=== PATIENT | female | born 1965 | race Two or more races ===

== ENCOUNTER 2016-07-12 08:41 | Emergency (ER) | payer OTHER ==
[~2016-07-12] VITALS: Ht 154.9 cm; Wt 83.5 kg
[~2016-07-12 08:41] MED LIST: SEROQUEL300 MG PO
[2016-07-12 08:57] VITALS: BP 121/75
--- NOTE | 2016-07-12 09:08 | NUR ---
Patient ambulated to bed 5.
--- NOTE | 2016-07-12 09:10 | NUR ---
51F BIB SELF C/O REQUEST FOR MELATONIN; PT STATES HAS BEEN HAVING INSOMNIA FOR 4-6 DAYS, AND WANTS PRESCRIPTION FOR MELATONIN; PT STATES TAKING SEROQUEL; A&OX4, PERRL; PT STATES HEARS "COMPUTER NOISES", BUT DENIES VOICES TELLING PT TO HURT SELF OR OTHERS AT THIS TIME TIME; DENIES ANY IDEAS OF SUICIDAL IDEATION AT THIS TIME; BL LUNG SOUNDS CLEAR, RR EVEN/UNLABORED, SKIN IS WARM/DRY/INTACT, DENIES N/V/D AT THIS TIME; STEADY GAIT; PT RESTING IN BED W/ HOB ELEVATED AND IN LOWEST POSITION; POSITIONED FOR COMFORT; ER MD MADE AWARE OF STATUS. WILL CONTINUE TO MONITOR.
--- NOTE | 2016-07-12 09:13 | NUR ---
ER MD DR. CHAVEZ EVALUATING PT AT BEDSIDE.
[2016-07-12 09:28] VITALS: BP 125/72
--- NOTE | 2016-07-12 09:28 | NUR ---
Patient discharged with v/s stable. Written and verbal after care instructions given and explained. Patient alert, oriented and verbalized understanding of instructions. Ambulatory with steady gait. All questions addressed prior to discharge. ID band removed. Patient advised to follow up with PMD. Rx of MELATONIN 5MG TAB given. Patient educated on indication of medication including possible reaction and side effects. Opportunity to ask questions provided and answered.
== END 2016-07-12 09:28 | disposition home or self-care (01) ==
LOC: MED 08:41
DX: G47.00 Insomnia, unspecified (principal); F20.9 Schizophrenia, unspecified; E11.9 Type 2 diabetes mellitus without complications; Z85.850 Personal history of malignant neoplasm of thyroid

== ENCOUNTER 2018-07-12 14:03 | Emergency (ER) | payer OTHER ==
[~2018-07-12] VITALS: Ht 154.9 cm; Wt 100.4 kg
[~2018-07-12 14:03] MED LIST changes: +QUET300T1 PO; -SEROQUEL300 MG PO
[2018-07-12 14:11] VITALS: BP 135/73
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
--- NOTE | 2018-07-12 15:00 | NUR ---
ermd at bedside
[2018-07-12] MEDS ORDERED: BACITRACIN OINT 500 UNITS/GM PKT TP ONE (15:05)
[2018-07-12] MEDS ORDERED: LIDOCAINE 1% 500 MG/50 ML VIAL INJ SCH (15:05)
[2018-07-12] MEDS ORDERED: LIDOCAINE MPF 1% 5mL VIAL ONE (15:18)
--- NOTE | 2018-07-12 16:30 | NUR ---
WOUND CARE PERFORMED, GOOD PERFUSION TO L HAND MIDDLE FINGER, PT DENIES NUMBNESS/TINGLING.
[2018-07-12 16:40] VITALS: BP 132/75
--- NOTE | 2018-07-12 16:41 | NUR ---
Patient discharged with v/s stable. Written and verbal after care instructions given and explained. Patient alert, oriented and verbalized understanding of instructions. Ambulatory with steady gait. All questions addressed prior to discharge. ID band removed. Patient advised to follow up with PMD. Rx of BACITRACIN, KEFLEX, TYLENOL, AND BACTRIM given. Patient educated on indication of medication including possible reaction and side effects. Opportunity to ask questions provided and answered.
== END 2018-07-12 16:41 | disposition home or self-care (01) ==
LOC: MED 14:03
DX: T23.222A Burn of second degree of single left finger (nail) except thumb, initial encounter (principal); E11.9 Type 2 diabetes mellitus without complications; C73 Malignant neoplasm of thyroid gland; Z79.899 Other long term (current) drug therapy; W40.8XXA Explosion of other specified explosive materials, initial encounter; Y93.89 Activity, other specified; Y92.090 Kitchen in other non-institutional residence as the place of occurrence of the external cause; Y99.8 Other external cause status
CPT/HCPCS: 26010; 73140; 82948; 99283; J2001; Q0092

== ENCOUNTER 2019-12-31 12:08 | Emergency (ER) | payer OTHER ==
[~2019-12-31] VITALS: Ht 162.6 cm; Wt 93.0 kg
[2019-12-31 12:16] VITALS: BP 133/82
--- NOTE | 2019-12-31 12:29 | NUR ---
PT AMBULATED TO BED 4
--- NOTE | 2019-12-31 12:30 | NUR ---
BIB self from [facility] facility, referred for abcesses on abdomen and thighs, denies trauma. NKDA, PMH depression and anxiety, seen at [facility] A, A, Ox4, flat affect, cooperative Moving all exts w/o difficulty. Resp even ang unlabored In NAD, HOB elevated Awaiting evaluation by MD, will continue to monitor
--- NOTE | 2019-12-31 13:16 | NUR ---
Patient medically cleared for discharge by MD. Advised to follow up with PCP or return to ED if symptoms return or worsen. Given copy of discharge instructions and script. Patient verbalized understanding of instructions and prescription. Gait steady, ID band removed. All belongings taken with patient.
== END 2019-12-31 13:16 | disposition home or self-care (01) ==
LOC: MED 12:08
DX: L03.116 Cellulitis of left lower limb (principal); L03.115 Cellulitis of right lower limb; L03.314 Cellulitis of groin; E11.9 Type 2 diabetes mellitus without complications; Z85.850 Personal history of malignant neoplasm of thyroid
CPT/HCPCS: 99283

== ENCOUNTER 2023-10-06 10:48 | Inpatient (IN) | payer OTHER ==
[~2023-10-06] VITALS: Ht 160 cm; Wt 85.0 kg
[2023-10-06 10:55] VITALS: BP 137/75; PULSE 87; RESP 16; TEMP 98.7; O2SAT 96
[2023-10-06 11:02] VITALS: O2SAT 96
[2023-10-06 11:58] LABS: BASOPHILS # (AUTO) 0.1 K/uL (0.00-0.22); BASOPHILS % (AUTO) 1.1 % (0.0-2.0); EOSINOPHILS # (AUTO) 0.2 K/uL (0-0.4); EOSINOPHILS % (AUTO) 1.2 % (0.0-4.0); HEMATOCRIT 35.6 % (36-48); HEMOGLOBIN 12.1 g/dL (12.0-16.0); LYMPHOCYTES # (AUTO) 2.3 K/uL (2.5-16.5); LYMPHOCYTES % (AUTO) 15.9 % (20.5-51.1); MEAN CORPUSCULAR HEMOGLOBIN 31 pg (27-31); MEAN CORPUSCULAR HGB CONC 34 g/dL (33-37); MEAN CORPUSCULAR VOLUME 89.5 fL (80-94); MONOCYTES # (AUTO) 1.1 K/uL (0.8-1.0); MONOCYTES % (AUTO) 7.5 % (1.7-9.3); NEUTROPHILS # (AUTO) 10.5 K/uL (1.8-7.7); NEUTROPHILS % (AUTO) 74.3 % (42.2-75.2); PLATELET COUNT (AUTO) 316 K/uL (140-450); RED BLOOD CELL COUNT(AUTO) 3.97 MIL/uL (4.20-5.40); RED CELL DISTRIBUTION WIDTH 13.3 % (11.6-13.7); WHITE BLOOD COUNT (AUTO) 14.2 K/uL (4.8-10.8)
[2023-10-06 12:14] LABS: ANION GAP 16.1 (8-16); CALCIUM 9.3 mg/dL (8.5-10.1); CARBON DIOXIDE 27.1 mmol/L (21-32); CREATININE 1.1 mg/dL (0.6-1.3); POTASSIUM 4.2 mmol/L (3.5-5.1)
[2023-10-06] MEDS: NACL 0.9% 1,000 ML IV ONE (13:41)
[2023-10-06] MEDS: INSULIN REGULAR, HUMAN 100 UNIT/ML VIAL IV ONE (13:50)
[2023-10-06] MEDS: LIDOCAINE/EPI 1% 1:100000 20 ML VIAL INJ ONE (14:03)
[2023-10-06] MEDS ORDERED: VANCOMYCIN 1,000 MG VIAL ONE (14:43)
[2023-10-06] MEDS: VANCOMYCIN 1,000 MG in DEXTROSE 5% 250 ML IV ONE (14:53)
[2023-10-06] MEDS ORDERED: RISP3TAB76 PO (15:34)
[2023-10-06] MEDS ORDERED: QUET300T26 PO (15:34)
[2023-10-06] MEDS ORDERED: ESCI5TAB18 PO (15:34)
[2023-10-06] MEDS ORDERED: ONDANSETRON 4 MG/2 ML VIAL IVP PRN (16:45)
[2023-10-06] MEDS ORDERED: VANCOMYCIN PER PHARMACY MC PRN (16:45)
[2023-10-06] MEDS ORDERED: HYDROmorphone 1 MG/ML AMP IVP PRN (16:45)
[2023-10-06] MEDS ORDERED: ZOLPIDEM 5 MG TAB PO PRN (16:45)
[2023-10-06] MEDS ORDERED: LORazepam 1 MG TAB PO PRN (16:45)
[2023-10-06] MEDS ORDERED: HYDROcodone/APAP 5/325 MG 1 TAB TAB PO PRN (16:45)
[2023-10-06] MEDS ORDERED: DEXTROSE 50% 50 ML SYR IVP PRN (16:50)
[2023-10-06] MEDS ORDERED: hydrALAZINE 25 MG TAB PO PRN (16:50)
[2023-10-06] MEDS: INSULIN LANTUS 100 UNITS/ML 10 ML VIAL SUBQ SCH (17:36)
[2023-10-06 20:00] VITALS: BP 109/59; PULSE 113; PULSE 80; PULSE 81; RESP 18; TEMP 97.7; O2SAT 92; O2SAT 95
[2023-10-06] MEDS: BLOOD GLUCOSE MONITORING 1 DEV DEV FS SCH (21:00)
[2023-10-06] MEDS: QUEtiapine FUMARATE 100 MG TAB PO SCH (22:36)
[2023-10-06] MEDS: INSULIN LISPRO SLIDING SCALE 100 UNITS/ML VIAL SUBQ PRN (22:45)
[2023-10-07] VITALS: BP 105/59; PULSE 77; PULSE 79; RESP 18; TEMP 97; O2SAT 94
[2023-10-07] MEDS: INSULIN LISPRO 100 UNITS/ML VIAL SUBQ ONE (00:55)
[2023-10-07 04:00] VITALS: BP 98/58; PULSE 73; PULSE 80; RESP 18; TEMP 96.9; O2SAT 97
[2023-10-07 07:05] LABS: BASOPHILS # (AUTO) 0.1 K/uL (0.00-0.22); EOSINOPHILS # (AUTO) 0.3 K/uL (0-0.4); HEMOGLOBIN 11.7 g/dL (12.0-16.0); MEAN CORPUSCULAR HEMOGLOBIN 31 pg (27-31)
[2023-10-07 07:21] LABS: ALBUMIN 3.3 g/dL (3.4-5.0); ANION GAP 11.1 (8-16); CALCIUM 8.8 mg/dL (8.5-10.1); CARBON DIOXIDE 30.1 mmol/L (21-32); CREATININE 0.9 mg/dL (0.6-1.3); MAGNESIUM 2.1 mg/dL (1.8-2.4); POTASSIUM 3.2 mmol/L (3.5-5.1); TOTAL BILIRUBIN 0.8 mg/dL (0.0-1.0); TOTAL PROTEIN, SERUM 7.3 g/dL (6.4-8.2)
[2023-10-07 07:24] LABS: BASOPHILS % (AUTO) 1.1 % (0.0-2.0); EOSINOPHILS % (AUTO) 2.2 % (0.0-4.0); HEMATOCRIT 34.1 % (36-48); LYMPHOCYTES # (AUTO) 3.1 K/uL (2.5-16.5); LYMPHOCYTES % (AUTO) 24.5 % (20.5-51.1); MEAN CORPUSCULAR HGB CONC 34 g/dL (33-37); MEAN CORPUSCULAR VOLUME 88.9 fL (80-94); MONOCYTES % (AUTO) 8.1 % (1.7-9.3); NEUTROPHILS # (AUTO) 8.2 K/uL (1.8-7.7); NEUTROPHILS % (AUTO) 64.1 % (42.2-75.2); PLATELET COUNT (AUTO) 338 K/uL (140-450); RED BLOOD CELL COUNT(AUTO) 3.83 MIL/uL (4.20-5.40); RED CELL DISTRIBUTION WIDTH 13.5 % (11.6-13.7); WHITE BLOOD COUNT (AUTO) 12.7 K/uL (4.8-10.8)
[2023-10-07 08:00] VITALS: BP 117/78; PULSE 70; PULSE 71; RESP 18; TEMP 98.5; O2SAT 95
[2023-10-07] MEDS ORDERED: ESCITALOPRAM 20 MG TAB PO SCH (09:00)
[2023-10-07] MEDS: VANCOMYCIN HCL 750 MG in NACL 0.9% 250 ML IV SCH (09:21)
[2023-10-07] MEDS: DOCUSATE SODIUM 100 MG GELCAP PO SCH (09:22)
[2023-10-07] MEDS: risperiDONE 1 MG TAB PO SCH (09:23)
[2023-10-07] MEDS: ESCITALOPRAM 5MG TAB PO SCH (09:24)
[2023-10-07 12:00] VITALS: BP 112/74; PULSE 77; PULSE 78; RESP 18; TEMP 99.2; O2SAT 92
[2023-10-07] MEDS: POTASSIUM CHLORIDE 10 MEQ TABER PO SCH (14:35)
[2023-10-07 16:00] VITALS: BP 99/53; PULSE 78; RESP 18; TEMP 99; O2SAT 94
[2023-10-07 20:00] VITALS: BP 112/70; PULSE 83; RESP 18; TEMP 98.6; O2SAT 100
[2023-10-07] MEDS: MEDS-TO-BEDS MC SCH (20:31)
[2023-10-08 04:00] VITALS: BP 115/66; PULSE 81; RESP 18; TEMP 98.3; O2SAT 100
[2023-10-08 07:00] LABS: BASOPHILS # (AUTO) 0.1 K/uL (0.00-0.22); BASOPHILS % (AUTO) 1.2 % (0.0-2.0); EOSINOPHILS # (AUTO) 0.3 K/uL (0-0.4); EOSINOPHILS % (AUTO) 4.2 % (0.0-4.0); HEMATOCRIT 34.8 % (36-48); LYMPHOCYTES # (AUTO) 2.6 K/uL (2.5-16.5); LYMPHOCYTES % (AUTO) 31.4 % (20.5-51.1); MEAN CORPUSCULAR HEMOGLOBIN 31 pg (27-31); MEAN CORPUSCULAR HGB CONC 34 g/dL (33-37); MEAN CORPUSCULAR VOLUME 89.9 fL (80-94); MONOCYTES # (AUTO) 0.7 K/uL (0.8-1.0); NEUTROPHILS # (AUTO) 4.4 K/uL (1.8-7.7); NEUTROPHILS % (AUTO) 54.2 % (42.2-75.2); PLATELET COUNT (AUTO) 332 K/uL (140-450); RED BLOOD CELL COUNT(AUTO) 3.88 MIL/uL (4.20-5.40); RED CELL DISTRIBUTION WIDTH 13.6 % (11.6-13.7); WHITE BLOOD COUNT (AUTO) 8.1 K/uL (4.8-10.8)
[2023-10-08 07:15] LABS: ALBUMIN 3.1 g/dL (3.4-5.0); ANION GAP 11.3 (8-16); CALCIUM 8.7 mg/dL (8.5-10.1); CARBON DIOXIDE 29.2 mmol/L (21-32); CREATININE 0.9 mg/dL (0.6-1.3); MAGNESIUM 2.1 mg/dL (1.8-2.4); POTASSIUM 3.5 mmol/L (3.5-5.1); TOTAL BILIRUBIN 0.6 mg/dL (0.0-1.0)
[2023-10-08 08:00] VITALS: BP 120/80; PULSE 74; PULSE 80; RESP 18; TEMP 97.5; O2SAT 100
[2023-10-08 12:00] VITALS: BP 114/82; PULSE 80; RESP 16; TEMP 97.3; O2SAT 100
[2023-10-08 16:00] VITALS: BP 120/66; PULSE 76; RESP 18; TEMP 97.5; O2SAT 100
[2023-10-08 20:00] VITALS: BP 114/61; PULSE 83; RESP 16; TEMP 97.1; O2SAT 83
[2023-10-09 04:00] VITALS: BP 107/73; PULSE 74; RESP 18; TEMP 96.8; O2SAT 95
[2023-10-09 08:00] VITALS: BP 120/75; PULSE 80; RESP 16; RESP 19; TEMP 96.7; O2SAT 96
[2023-10-09 09:27] LABS: BASOPHILS # (AUTO) 0.1 K/uL (0.00-0.22); BASOPHILS % (AUTO) 1.3 % (0.0-2.0); EOSINOPHILS # (AUTO) 0.2 K/uL (0-0.4); EOSINOPHILS % (AUTO) 3.4 % (0.0-4.0); HEMATOCRIT 36.7 % (36-48); HEMOGLOBIN 12.5 g/dL (12.0-16.0); LYMPHOCYTES # (AUTO) 2.5 K/uL (2.5-16.5); LYMPHOCYTES % (AUTO) 35.8 % (20.5-51.1); MEAN CORPUSCULAR HEMOGLOBIN 31 pg (27-31); MEAN CORPUSCULAR HGB CONC 34 g/dL (33-37); MEAN CORPUSCULAR VOLUME 90.1 fL (80-94); MONOCYTES # (AUTO) 0.5 K/uL (0.8-1.0); MONOCYTES % (AUTO) 7.6 % (1.7-9.3); NEUTROPHILS # (AUTO) 3.6 K/uL (1.8-7.7); NEUTROPHILS % (AUTO) 51.9 % (42.2-75.2); PLATELET COUNT (AUTO) 372 K/uL (140-450); RED BLOOD CELL COUNT(AUTO) 4.07 MIL/uL (4.20-5.40); RED CELL DISTRIBUTION WIDTH 13.6 % (11.6-13.7)
[2023-10-09 09:47] LABS: ALBUMIN 3.3 g/dL (3.4-5.0); ANION GAP 10.5 (8-16); CALCIUM 8.9 mg/dL (8.5-10.1); CARBON DIOXIDE 29.8 mmol/L (21-32); CREATININE 0.8 mg/dL (0.6-1.3); MAGNESIUM 2.3 mg/dL (1.8-2.4); POTASSIUM 3.3 mmol/L (3.5-5.1); TOTAL BILIRUBIN 0.5 mg/dL (0.0-1.0); TOTAL PROTEIN, SERUM 7.3 g/dL (6.4-8.2)
[2023-10-09] MEDS ORDERED: LINE600T4 PO (11:22)
[2023-10-09] MEDS ORDERED: METF1TAB1 PO (11:30)
[2023-10-09] MEDS ORDERED: DAPA5TAB PO (11:30)
[2023-10-09 12:00] VITALS: BP 110/68; PULSE 77; RESP 19; TEMP 97.6; O2SAT 98
[2023-10-09 12:12] VITALS: BP 110/68; PULSE 77; RESP 19; TEMP 97.6
== END 2023-10-09 13:40 | disposition home or self-care (01) | DRG 854 ==
LOC: MED 10:48 → MTU 16:45
PROVIDERS: ADMIT Hospitalist; ATTEND Hospitalist
PROC: 0W960ZZ Drainage of Neck, Open Approach (ICD-10-PCS; principal; 2023-10-06)
DX: A41.9 Sepsis, unspecified organism (principal); L02.11 Cutaneous abscess of neck; L03.221 Cellulitis of neck; E11.65 Type 2 diabetes mellitus with hyperglycemia; Z79.899 Other long term (current) drug therapy; F20.9 Schizophrenia, unspecified; F31.9 Bipolar disorder, unspecified
CPT/HCPCS: 36415; 70491; 80048; 80053; 80202; 82948; 83036; 83735; 85025; 87081; 96374; 96375; 99285; J1815; J2001; J3370; J7030; Q9967